=== PATIENT | male | born 1960 | race Caucasian/White ===

== ENCOUNTER 2025-10-10 06:10 | Day surgery (SDC) | payer BC, SELFPAY ==
[2025-10-10] VITALS (20 sets, daily range): BP systolic 86–151; BP diastolic 46–96; PULSE 44–73; RESP 12–16; TEMP 36–36.7; O2SAT 93–99; BMI 33.9
[2025-10-10] MEDS: OXYCODONE (CR) 10 MG TAB.ER.12H PO (06:35)
[2025-10-10] MEDS: ACETAMINOPHEN 500 MG TABLET 1000 MG PO (06:35)
[2025-10-10] MEDS: LACTATED RINGERS 1000 ML 1,000 ML 100 ML IV ×3 (06:55→09:34)
[2025-10-10] MEDS: SODIUM CHLORIDE 0.9 % (FLUSH) 10 ML SYRINGE IVF (06:55)
--- NOTE | 2025-10-10 07:18 | W.PM.H&PU ---
History & Physical Update History & Physical Update H&P Reviewed and patient assessed: No changes noted
--- NOTE | 2025-10-10 07:23 | SUR.PREOP ---
TIME?OUT:?0724 PT/RN/MDA?VERIFICATION?OF?SURGICAL?SITE-RIGHT KNEE,?PROCEDURE,?NERVE BLOCK, AND?CONSENT OBTAINED?PRIOR?TO?INVASIVE?PROCEDURE.
[2025-10-10] MEDS: MIDAZOLAM HCL 1 MG/ML inj IVP (07:25)
[2025-10-10] MEDS: TRANEXAMIC ACID 100 MG/ML INJ 1000 MG IV (07:45)
--- NOTE | 2025-10-10 07:54 | W.PM.NB ---
Nerve Block Nerve Block Time Seen by Provider: 07:25 Date Seen: 10/10/25 Type of block requested by surgeon for post-operative analgesia: adductor canal Side: right Time out performed: Yes Verification of patient name: Yes Verification of date of : Yes Site marking: site marked Name of person performing procedure: Beau Continuous monitoring Was continuous monitoring of O2 sat, B/P, court monitor, recorded every 15 minutes?: Yes Procedure Checklist: sterile prep, needles and gloves Ultrasound guided. Images saved: Yes Medications given in 5ml increments after negative aspiration: Marcaine %: 0.25 mL: 15 Needle gauge: 20 Precedex (mcg): 25 Patient tolerated procedure well: Yes Block Charges Block Charge (with Pro Fee): Femoral Nerve Use of Ultrasound Machine for Block: Yes- US Guidance/pain block
--- NOTE | 2025-10-10 07:55 | W.PM.NB ---
Nerve Block Nerve Block Time Seen by Provider: 07:25 Date Seen: 10/10/25 Type of block requested by surgeon for post-operative analgesia: geniculars Side: right Time out performed: Yes Verification of patient name: Yes Verification of date of : Yes Site marking: site marked Name of person performing procedure: Beau Continuous monitoring Was continuous monitoring of O2 sat, B/P, lunchroom monitor, recorded every 15 minutes?: Yes Procedure Checklist: sterile prep, needles and gloves Ultrasound guided. Images saved: Yes Medications given in 5ml increments after negative aspiration: Marcaine %: 0.25 mL: 9 Needle gauge: 25 Patient tolerated procedure well: Yes Block Charges Block Charge (with Pro Fee): Genicular Nerve Block
--- NOTE | 2025-10-10 09:01 | P.ORPRC_ITS ---
Procedure Note Date of procedure: 10/10/25 Procedure: PREOPERATIVE DIAGNOSIS: 1. Right knee osteoarthritis, primary, severe POSTOPERATIVE DIAGNOSIS: 1. Right knee osteoarthritis, primary, severe PROCEDURE: 1. Right total knee arthroplasty, Press-Fit, Rotating Platform - No tourniquet SURGEON: Benoit Martínez MD. [employer] ASSEMBLER: CATRACHITA Berry - Of note, a skilled physical laboratory assistant was critical for this case to aid in patient positioning, tissue retraction, limb manipulati on/positioning, and closure. ANESTHESIA: Spinal anesthetic EBL: 100ml IMPLANTS: DePuy J&J uncemented TKA - Attune PS pressfit femur size 7 Size 6 pressfit tibia Rotating Platform 5mm RP poly spacer 38 mm Affixium patella TOURNIQUET: None COMPLICATIONS: None evident INDICATIONS: The patient is a pleasant 65-year-old male who has experienced severe right knee pain and difficulty bearing weight. Workup included x-rays which revealed severe osteoarthrosis in the knee. Given the deformity, the dysfunction, and the pain, as well as the failure of nonoperative management, recommendation was made for surgery. FINDINGS: Full-thickness chondral loss within the medial compartment with erosion of bone. To lesser degree patellofemoral and lateral compartment chondromalacia noted. Degenerative meniscus pathology medial greater than lateral. Small to moderate effusion upon entering the joint. DESCRIPTION OF PROCEDURE: Following a thorough discussion of risks, benefits, and alternatives consent was obtained and the right knee was marked. The patient was brought to the operating room and placed supine on the operating table. Induction of anesthesia was undertaken. 2 g IV Ancef and 1 g tranexamic acid was administered within 1 hr of incision preoperatively. Proper time-out was performed identifying proper patient, site, procedure. The operative extremity was prepped and draped in the appropriate sterile fashion using ChloraPrep after the patient was positioned supine with all bony prominences well padded. A longitudinal, anterior, midline skin incision was made starting approximately 3cm proximal to the superior pole of the patella and advanced distal to the tibial tubercle. A sub vastus approach was utilized. After mobilizing the patella, the retropatellar fatpad was resected and the synovium in the suprapatellar pouch excised to visualize the anterior femoral cortex. Patellar prep showed initial measurement/thickness of 26 mm. It was resected back to approximately 15 mm. The patella prep was completed with drilling and a trial placed followed by a protector plate until final component implantation. Femoral preparation was performed via an intramedullary guide. Step drill allowed access into the femoral canal. The distal cutting guide was placed with 5? of valgus and 11 mm cut on the distal femur. Femur was sized using a anterior referencing guide in 3? of external rotation. This was found to have a best fit with the sizing noted above. The 4 in 1 cutting block was then placed, and the distal femur shaped accordingly. The box cut was then completed. We turned our attention to the proximal tibia. Extramedullary guide was utilized for cutting with the goal of being 90 degree cut from the mechanical axis of the tibia in the varus/valgus plane utilizing tibial crest as the primary alignment. Initially a 3 mm resection was performed from the medial tibial plateau. Ultimately, balancing was achieved in both flexion and extension in both varus and valgus. The knee was able to achieve full extension comfortably. It was sized to be a best fit with as noted above. At this stage, trial implants were removed, the tibia and femoral and patellar components were opened and inserted. The real poly spacer was opened and inserted. A 3 min Betadine soak performed. Finally, a final irrigation round with normal saline was performed. Closure performed with 0 PDS and #0 Stratafix for the quad tendon/retinaculum. 2-0 Vicryl/Stratafix for the subcutaneous and 4-0 Monocryl for subcuticular closure. Dressings were applied and the patient was awoken from anesthesia and transferred the PACU in stable condition. A skilled physical laboratory assistant was critical for this case to aid in patient positioning, tissue retraction, bone exposure, limb manipulation/positioning, patient safety, and closure. PLAN: 1. Weight bear as tolerated operative extremity. 2. 23 hr perioperative antibiotics. 3. Ice. 4. PT/OT consults for ambulation assistance/mobility education. 5. Social work consult for discharge planning. 6. DVT prophylaxis with at SCDs, and aspirin twice daily.
--- NOTE | 2025-10-10 09:19 | CRLHL7_ITS ---
For Patients: As a result of the Cures Act, medical imaging exams and procedure reports are released immediately into your electronic medical record. You may view this report before your referring provider. If you have questions, please contact your health care provider. INDICATION: Total knee arthroplasty. TECHNIQUE: Two view RIGHT knee portable. IMPRESSION : Prosthetic components intact. Patellar resurfacing. Anatomic alignment. No acute osseous lesions. Dictated by Lion Javier MD @ 10/10/2025 9:47:36 AM (Electronically Signed)
--- NOTE | 2025-10-10 09:24 | P.ANES_ITS ---
Anesthesia Charges Start Date/Time Anesthesia Start Date: 10/10/25 Anesthesia Start Time: 07:32 Stop Date/Time Anesthesia Stop Date: 10/10/25 Anesthesia Stop Time: 09:20 Coding CPT Codes CPT Codes: ANESTH KNEE ARTHROPLASTY - 65990 ([id number]) P2 - PATIENT W/MILD SYST DISEASE, QK - ULTIMATE HOOPS SCOREBOARD OPERATOR 2-4 CNCRNT ANES PROC, QX - BASE REMOVER SVC W/ MD MED DIRECTION
--- NOTE | 2025-10-10 09:24 | W.ANESCHARGE ---
Anesthesia Charges Start Date/Time Anesthesia Start Date: 10/10/25 Anesthesia Start Time: 07:32 Stop Date/Time Anesthesia Stop Date: 10/10/25 Anesthesia Stop Time: 09:20 Coding CPT Codes CPT Codes: ANESTH KNEE ARTHROPLASTY - 35750 ([id number]) P2 - PATIENT W/MILD SYST DISEASE, QK - ROAD DRIVER 2-4 CNCRNT ANES PROC, QX - MANAGER FIELD SVC W/ MD MED DIRECTION
--- NOTE | 2025-10-10 09:26 | P.ANES_ITS ---
Anesthesia Charges Start Date/Time Anesthesia Start Date: 10/10/25 Anesthesia Start Time: 07:32 Stop Date/Time Anesthesia Stop Date: 10/10/25 Anesthesia Stop Time: 09:20 Coding CPT Codes CPT Codes: ANESTH KNEE ARTHROPLASTY - 03236 ([id number]) P2 - PATIENT W/MILD SYST DISEASE, QK - SMALL BUSINESS SALES REPRESENTATIVE 2-4 CNCRNT ANES PROC, QX - PIGMENT AND LACQUER MIXER SVC W/ MD MED DIRECTION
--- NOTE | 2025-10-10 09:26 | W.ANESCHARGE ---
Anesthesia Charges Start Date/Time Anesthesia Start Date: 10/10/25 Anesthesia Start Time: 07:32 Stop Date/Time Anesthesia Stop Date: 10/10/25 Anesthesia Stop Time: 09:20 Coding CPT Codes CPT Codes: ANESTH KNEE ARTHROPLASTY - 38210 ([id number]) P2 - PATIENT W/MILD SYST DISEASE, QK - MODEL AND PATTERN SUPERVISOR 2-4 CNCRNT ANES PROC, QX - EDUCATIONAL DIRECTOR SVC W/ MD MED DIRECTION
--- NOTE | 2025-10-10 13:45 | SUR.PHASEII ---
Pt able to urinate in toilet before going to PT. Patient able to stand but has weakness in quad muslce. Unable to take a step without leg giving out. Roney from PT will give pt brace to wear. Pt able to pivot to w/c from chair and then to toilet from w/c with minimal assist. Continue to monitor.
--- NOTE | 2025-10-10 15:18 | SUR.PHASEII ---
Patient verbalized understanding of discharge instructions that were reviewed by Ulices Downing RN. Patient verbalized understanding of PT orders to wear an immobilizer on operative leg until all muscle strength returns. Patient verbalized readiness to be discharged.
== END 2025-10-10 15:15 | disposition home or self-care (01) ==
LOC: OR 06:10
PROVIDERS: PCP Physician Assistant; Visit Provider Orthopaedic Surgery Sports Medicine
PROC: (CPT 27447; principal; 2025-10-10 07:30)
DX: M17.11 Unilateral primary osteoarthritis, right knee (principal); G89.18 Other acute postprocedural pain
CPT/HCPCS: 27447; 01402; 64447; 64454; 73560; 76942; 97110; 97161; 97530; A9270; C1776; J0665; J0690; J1100; J2250; J2405; J2704; J3010; J7120

== ENCOUNTER 2025-10-25 10:11 | Outpatient (CLI) | payer BC, SELFPAY ==
--- NOTE | 2025-10-25 10:15 | CRLHL7_ITS ---
For Patients: As a result of the Century Cures Act, medical imaging exams and procedure reports are released immediately into your electronic medical record. You may view this report before your referring provider. If you have questions, please contact your health care provider. Indication: Right calf pain and swelling status post right TKA. Technique: Grayscale, grayscale compression, color Doppler, spectral Doppler and augmentation technique was utilized for evaluating the right lower extremity venous system. The left common femoral vein was also studied. Comparison: None Findings: The left common femoral vein is patent. The following structures were studied on the right: Common femoral vein, greater saphenous vein, deep femoral vein, femoral vein, popliteal vein, peroneal vein and posterior tibial veins. There is deep venous thrombosis involving the right popliteal vein as well as 1 of the paired posterior tibial veins and the peroneal veins. The remainder of the right lower extremity venous system is normal Impression: Right lower extremity deep venous thrombosis involving the popliteal vein, 1 of the paired posterior tibial veins and the peroneal veins. Dictated by Arnulfo Georges MD @ 10/25/2025 11:39:34 AM (Electronically Signed)
== END 2025-10-25 10:12 | disposition home or self-care (01) ==
PROVIDERS: PCP Physician Assistant; Visit Provider Physician Assistant Surgical
DX: I82.491 Acute embolism and thrombosis of other specified deep vein of right lower extremity (principal); I82.431 Acute embolism and thrombosis of right popliteal vein; Z96.651 Presence of right artificial knee joint; M79.661 Pain in right lower leg
CPT/HCPCS: 93971

== ENCOUNTER 2025-10-25 11:23 | Emergency (ER) | payer BC, SELFPAY ==
--- OUTSIDE RECORDS SUMMARY | 2025-09-20 10:00 | XMS_ITS | Encounter Summary ---
Author Organization [facility] Address [address] [place] [address] Care Team Providers Care Order Entry Administrator Name Role Phone Francine Sharma P.A.-C., P.A. Primary Care Provid er Reason for Visit * ReasonCommentsPre-op Exam * Appointment Request (Routine) - ClosedSpecialtyDiagnoses / ProceduresReferred By ContactReferred To ContactFanew [facility] Medicine Referral IDStatusReasonStart DateExpiration DateVisits RequestedVisits [id number]/29/20251/ Encounter Details DateTypeDepartmentCare Team (Latest Contact Info)Qahrojnnfma57/18/2025 10:00 AM CSTOffice Visit Department of Family Medicine, [facility], in [place], [place] [address] [place] [address] Francine Sharma P.A.-C., P.A. [address] [place] [address] Preoperative Exam (Primary Dx); Primary Malignant Neoplasm Of Prostate (HCC); PreDiabetes; Encounter For Screening For Cardiovascular Disorders Social History Tobacco UseTypesPacks/DayYears UsedDateSmoking Tobacco: NeverSmokeless Tobacco: NeverAlcohol UseStandard Drinks/WeekCommentsNot Currently0 (1 standard drink = 0.6 oz pure alcohol)Humiliation, Afraid, Rape, and Kick questionnaireAnswerDate RecordedWithin the last year, have you been afraid of your partner or ex-partner?No03/20/2023Within the last year, have you been humiliated or emotionally abused in other ways by your partner or ex-partner?No03/20/2023 Within the last year, have you been kicked, hit, slapped, or otherwise physically hurt by your partner or ex-partner?No03/20/2023Within the last year, have you been raped or forced to have any kind of sexual activity by your part ner or ex-partner?No03/20/2023Hunger Vital SignAnswerDate RecordedWithin the past 12 months, you worried that your food would run out before you got the money to buymore.Never true09/13/2025Within the past 12 months, the food you bought just didn't last and you didn't have money to get more.Never true 09/13/2025PRAPARE - TransportationAnswerDate RecordedIn the past 12 months, has lack of transportation kept you from medical appointments or from getting medications?No09/13/2025In the past 12 months, has lack of transportation kept you from meetings, work, or from getting things needed for daily living?No 09/13/2025HC UtilitiesAnswerDate RecordedIn the past 12 months has the [employer], gas, oil, or water [employer] threatened to shut off services in your home?No09/13/2025Housing StabilityAnswerDate RecordedWhat is your living situation today?I have a steady place to live09/13/2025EducationAnswerDate RecordedWhat is the highest level of school you have completed or the highest degree you have received?Associate degree: occupational, technical, or vocational jmogpfj0503/20/2023Sex and Gender InformationValueDate RecordedSex Assigned at SjfafAoav74/31/2020 2:29 PM CDTLegal EshJvyg1312/06/2016 2:45 AM [employer] Gender JxdrjwjpLpuk07/13/2020 11:33 AM CDTSexual QxiukvuarxgUfzmdclu64/13/2020 11:33 AM CDTdocumented as of this encounter Last Filed Vital Signs Vital SignReadingTime TakenCommentsBlood Nvzfhrgu391/8109/20/2025 9:42 AM [employer] MzbagkyKbrfq0579/18/2025 9:42 AM SPFUeuhjptvuqy17.2 ??C (97.1 ??F)09/20/2025 9:42 AM CSTRespiratory Rate--Oxygen Saturation--Inhaled Oxygen Concentration-- Vghzgk049 kg (228 lb 2.8 oz)09/20/2025 9:42 AM WNFJwbxve887 cm (5' 8.9) 09/20/2025 9:42 AM CSTBody Mass Index33.8111/20/2024 9:42 AM CSTdocumented in this encounter Functional Status * PHQ BACKGROUND SCOREAnswerDate of QuspeufhiyAhsoqn350/11/2025 11:28 AM [employer] Patient, Online Services * STOP-BANG QuestionnaireQuestionAnswerDate of AssessmentAuthorDo you snore loudly (loud enough to be heard through closed doors or your bed-partner elbows you for snoring at night)? 9:42 AM Hanane Bailey you often feel tired, fatigued, or sleepy during the daytime (such as falling asleep during driving or talking to someone)? 9:42 AM Hanane Bailey anyone observed you stop breathing or choking/gasping during your sleep? 9:42 AM Hanane Bailey you have or are being treated for high blood pressure? 9:42 AM Hanane Baileyody Mass Index more than 35 kg/m2? 9:42 AM Hanane Bailey older than 50?1 09/20/2025 9:42 AM Hanane Bailey your shirt collar 16 inches/40cm or larger? 9:42 AM Hanane BaileyGender = Male? 9:42 AM Hanane BaileyTOP-BANG Total Enruk42911/20/2024 9:42 AM Hanane Bailey * BMI: Desirable <25, High Risk >30AnswerDate of XycspjkomwYptceoTywy76/18/2025 9:42 AM Hanane Bailey * Little interest or pleasure in doing thingsAnswerDate of AssessmentAuthor0 09/13/2025 11:28 AM CSTPatient, Online Services * Feeling down, depressed, or hopelessAnswerDate of PkbvqncjdkVqmtsb145/11/2025 11:28 AM CSTPatient, Online Services * PHQ-2 ScoreAnswerDate of FjdubkyynwDiqxod354/11/2025 11:28 AM CSTPatient, Online Services * AnthropometricsQuestionAnswerDate of AssessmentAuthorBMI (Calculated)33.8 09/20/2025 9:42 AM Hanane Bailey documented as of this encounter Progress Notes * Francine Sharma P.A.-C., P.A. - 09/20/2025 10:00 AM CST SUBJECTIVE CHIEF COMPLAINT/REASON FOR VISIT Pre-op Exam ( Surgery on Oct 13 for knee). HISTORY OF PRESENT ILLNESS Harris Marshall is a 65 y.o. male who presents to the clinic today for a preoperative exam prior to right total knee arthroplasty on 10/10/[address] Eaton at [facility]. There have been no prior complications or problems with anesthesia. There is no family medical history of problemswith anesthesia or malignant hyperthermia. The patient has no known bleeding or clotting disorders.There are no problems with neck range of motion. The patient has not been diagnosed with sleep apnea. The patient does not have diabetes. There are no sensitivities to tape or latex. No problems swallowing or current loose teeth. The patient does not wear dentures. The patient does not use blood thinners. The patient does not routinely use NSAIDs. The patient is a nonsmoker. The patient is not taking a beta bindu. There is no need for prophylactic antibiotics. The patient has no cardiopulmonary problems walking 4 blocks or climbing 2 flights of stairs. Patient denies any recent illness including cough, cold, or shortness of breath. REVIEW OF SYSTEMS Constitutional: - Negative for fatigue, fever and night sweats. Skin: - Negative for skin rash and change in mole or skin spot. Eyes: - Negative for double vision, visual problems and sudden loss of vision. Respiratory: - Negative for dry cough, shortness of breath and wheezing. Cardiovascular: - Negative for chest pain, pressure or tightness, swelling in the legs or feet and rapid or fluttering heart beat. Gastrointestinal: - Negative for abdominal (belly) pain or cramping, constipation, diarrhea, nausea and vomiting. Genitourinary: - Negative for difficulty urinating, pain with urination, blood in urine and frequent urination. Neurological: - Negative for loss of consciousness, light-headedness, headaches and blackouts. Psychiatric/Behavioral: - Negative for little interest or pleasure in doing things over past two weeks, feeling down, depressed, or hopeless over past two weeks, not being able to stop or control worrying over past two weeks and feeling nervous, anxious, or on edge in past two weeks. The following portions of the patient's history were reviewed and updated as appropriate: allergies, current medications, family history, medical history, social history, surgical history and problemlist. OBJECTIVE VITAL SIGNS BP 122/81 (BP Location: Right arm, Patient Position: Sitting, Cuff Size: Large) Comment: Average Pulse 60 Temp 36.2 ??C (Temporal) Ht 175 cm Wt 104 kg BMI 33.80 kg/m?? PHYSICAL EXAMINATION General: Patient is alert and oriented, in no acute distress. Capable of full communication withoutdifficulty. Patient is polite and cooperative. Appropriately dressed and normal hygiene. HEENT: Normocephalic, atraumatic. Pupils are equal, round and reactive to light. Auditory canals patent. Tympanic membranes are pearly bradford with adequate visualization of bony prominences. Nares are patent. Oropharynx without lesion of mucosa. Pharynx rises symmetrically without exudate. Dentition grossly intact. Mallampati II. Neck: No lymphadenopathy. No thyroid enlargement or nodules. No carotid bruit. Neck is supple with normal range of motion. Heart: Regular rate and rhythm. No murmurs, gallops or rubs noted. No S3, no S4. Lungs: Regular rate and rhythm of respirations. Clear to auscultation bilaterally. No wheezing or crackles. No accessory muscles of respiration noted. Abdomen: Nontender to palpation. No hepatosplenomegaly. No mass. Normal bowel sounds in all 4 quadrants. Musculoskeletal: Normal range of motion in all extremities. Extremities: No neurovascular compromise. No cyanosis or clubbing. No edema. Skin: No rashes or wounds. No evidence of excessive bruising. Neurologic: Cranial nerves 2-12 are grossly intact. Deep tendon reflexes are 2+ bilaterally in patellar tendons. Mental: Affect is normal. Thought process is congruent. Speech is fluent. ASSESSMENT / PLAN 1. Preoperative Exam (Primary) PLAN: Patient is felt to be medically stable and medically optimized for the above procedure. No contraindication to anesthesia. Known cardiopulmonary risk factors include obesity. Functional capacity is >4 METS. We reviewed medications to avoid taking prior to the procedure. The patient knows to be fasting after midnight the day of surgery. Further preoperative and postoperative recommendations will be given prior to surgery by surgeon. Patient will followup as needed. 2. Primary Malignant Neoplasm Of Prostate (HCC) Annual PSA monitoring due to history of prostate cancer, due in February,, ordered today. - PSA (Prostate-Specific Antigen), Diagnostic; Future 3. PreDiabetes History of prediabetes with last A1c found to be elevated at 6.2% in February,, due to repeat/monitor annually, ordered today. - Hemoglobin A1c; Future 4. Encounter For Screening For Cardiovascular Disorders Patient due for routine lipid screening, which is ordered today to be completed prior to time of annual physical next year. - Lipid Panel; Future Francine Sharma P.A.-C., P.A. [facility] documented in this encounter Plan of Treatment NameTypePriorityAssociated DiagnosesOrder SchedulePSA (Prostate-Specific Antigen), DiagnosticLabRoutine Primary Malignant Neoplasm Of Prostate (HCC) Expected: 02/18/2026, Expires: 12/21/2026Hemoglobin Z2dWnmFyylfak PreDiabetes Expected: 02/18/2026 (Approximate), Expires: 12/21/2026Lipid PanelLabRoutine Encounter For Screening For Cardiovascular Disorders Expected: 02/18/2026 (Approximate), Expires: 12/21/2026documented as of this encounter Visit Diagnoses Diagnosis Preoperative Exam- Primary Primary Malignant Neoplasm Of Prostate (HCC) PreDiabetes Encounter For Screening For Cardiovascular Disorders documented in this encounter Care Teams Team MemberRelationshipSpecialtyStart DateEnd Date Francine Sharma P.A.-C., P.A. [address] [place] [address] PCP - Xuvduhh28/1/21 Dr Umer Pillai at [facility]. 09/28/24documented as of this encounter
--- OUTSIDE RECORDS SUMMARY | 2025-10-25 11:33 | XMS_ITS | Clinical Summary ---
Author Organization [facility] Address [address] [place] [address] Care Team Providers Care Utility Tech Name Role Phone Francine Sharma P.A.-C., P.A. Primary Care Provid er Source Comments Patient records contain information from all sites at [facility]. For routine questions regarding patient records, call [phone] during business hours, M-F 8:00 AM - 5:00 PM Central Time. Record requests for emergency care only can be directed to [phone] at any time.[facility] Allergies Active AllergyReactionsCriticalityNoted DateCommentsVenom-Honey BeeEdema (Reselect Reaction)Low07/18/2017 Medications * This document contains information received from the source organization and may not represent a complete record from that organization. MedicationSigDispense QuantityRefillsLast FilledStart DateEnd DateStatus multivitamin capsule Take 1 capsule by mouth daily.Active acetaminophen (TylenoL) 325 mg tablet Take 650 mg by mouth every 4 (four) hours as needed for pain.Active ibuprofen 200 mg tablet Take 400 mg by mouth every 6 (six) hours as needed for pain.Active Active Problems ProblemNoted DateDiagnosed DatePrimary Malignant Neoplasm Of Gzrvigst62/17/2020 Cancer Staging: Clinical stage from 07/20/2020:Stage I(cT1a, cN0, cM0, PSA: 4.2, Grade Group: 1) - Signed by Jaquan Foster M.D. on 07/20/2020 Pathologic stage from 10/13/2020:Stage IIB(ypT2, pN0, cM0, PSA: 4.2, Grade Group: 2) - Signed by Holley Vargas APRN, C.N.P. on 02/26/2022 Abnormality Hair11/27/2010Conjunctivitis Ygcnnsw9211/27/2010 Resolved Problems ProblemNoted DateDiagnosed DateResolved DateDisplaced Fracture Of Head Of Right Radius Initial Encounter Closed Omrijjeq99 Encounters * This document contains information received from the source organization and may not represent a complete record from that organization. DateTypeDepartmentCare UcivJakyqkztmxp38/18/2025 10:00 AM CSTOffice Visit Department of Family Medicine, [facility], in [place], [place] [address] [address] Francine Sharma P.A.-C., P.A. Preoperative Exam (Primary Dx); Primary Malignant Neoplasm Of Prostate (HCC); PreDiabetes; Encounter For Screening For Cardiovascular Disordersfrom Last 3 Months Immunizations ImmunizationAdministration DatesNext QndF1L6 All Forms08/29/2009Influenza, Injectable, Ykdavyrnspwm93/26/2015Influenza, Seasonal, Mguafcuavw16/12/4688SYP30 09/20/2025RZV (SHINGRIX)01/27/2021,08/03/20203808SRWG-WZE-0 (COVID-19) - MODERNA (12 YEARS AND OLDER) Fall Wextjqxg81/18/2025Td (Adult), lycwomxo14/25/2003Td Preservative Free (TENIVAC, DECAVAC)09/19/2005,09/27/2003Td, (Adult) Unspecified 09/11/2012Tdap1,09/11/2012influenza trivalent vaccine (6 months and older)(PF)09/20/2025influenza vaccine quad (FLUZONE/FLUARIX) (6 months and older)(PF)08/14/2022,08/20/2021,08/03/2020,07/13/2019,08/08/2017 Family History Medical HistoryRelationNameCommentsDiabetesBrother 1DiabetesBrother 2Kelly HansenAortic valveFatherRaymond HansenCardiac pacemakerFatherRaymond Marshall DiabetesFatherRaymond HansenProstate cancerFatherRaymond HansenSkin cancerFather Karlos HansenProstate cancerMaternal GrandfatherEsophageal strictureMaternal GrandmotherBreast cancer (in one breast)MotherSjuwan HansenLungPaternal GrandfatherNo Known ProblemsPaternal GrandmotherNo Known ProblemsSister 1 DiabetesSister 2DiabetesSister 3BeckyRelationNameStatusCommentsBrother 1Alive Brother 2Kgia HansenAliveFatherRaymond HansenAliveMaternal GrandfatherDeceased (Age 85)Maternal GrandmotherDeceased (Age 88)MotherShirfrieda HansenDeceased (Age 56)Paternal GrandfatherDeceasedPaternal GrandmotherDeceased (Age 88)Sister 1 AliveSister 2AliveSister 3BeckyAlive Social History Tobacco UseTypesPacks/DayYears UsedDateSmoking Tobacco: NeverSmokeless Tobacco: Never Tobacco Cessation:Counseling Given: Not Answered Alcohol UseStandard Drinks/WeekCommentsNot Currently0 (1 standard drink = [...] RecordedIn the past 12 months has the electric, gas, oil, or water company threatened to shut off services in your home?No09/13/2025Housing StabilityAnswerDate RecordedWhat is your living situation today?I have a steady place to live09/13/2025EducationAnswerDate RecordedWhat is the highest level of school you have completed or the highest degree you have received?Associate degree: occupational, technical, or vocational lxyrern0303/20/2023Sex and Gender InformationValueDate RecordedSex Assigned at AogjmSahg70/31/2020 2:29 PM CDTLegal XrhUidq1812/06/2016 2:45 AM [employer]SEM[employer] Gender PkvyzkkvErnx56/13/2020 11:33 AM CDTSexual BpiqvweprcpNgqwwdfa35/13/2020 11:33 AM CDT Last Filed Vital Signs Vital SignReadingTime TakenCommentsBlood Bkuihpza038/8109/20/2025 9:42 AM [employer] RmiqmzoBqvgf8698/18/2025 9:42 AM DLHPfzbjrcvtxm01.2 ??C (97.1 ??F)09/20/2025 9:42 AM CSTRespiratory Zggb713112/13/2019 5:00 PM CSTOxygen Eaumqovksa88% 02/26/2022 1:56 PM CDTRAInhaled Oxygen Concentration--Pusuhu788 kg (228 lb 2.8 oz)09/20/2025 9:42 AM MUTGicjxe330 cm (5' 8.9)09/20/2025 9:42 AM CSTBody Mass Index33.8111/20/2024 9:42 AM [employer]SEM[employer] Plan of Treatment Health MaintenanceDue DateLast DoneCommentsCT Nezojbzebdaa1961Cologuard 1961FIT1961Fasting Glucose for Diabetes Uzvjyjkjz14/01/2026 02/01/2025, 08/16/2024, 10/10/2020, Additional history existsLipid (Cholesterol) Nnwgyxmfo21, 04/15/2020 (Performed elsewhere), 09/11/2012 Junnrwtpuau58, 10/08/2012Colorectal Cancer Qabeomtuj32/15/2033 DTaP,Tdap,and Td Vaccines (4 - Td or Tdap), 09/11/2012, 09/11/2012, Additional history existsHepatitis C PtvxoktkbGjxhskgwa35/01/2020 (Performed elsewhere)Overridden with the intention of not completing the topic Zoster VkfheflhDxvnwfcvb15/27/2021, 08/03/2020Depression Screening (Annual PHQ-2)Aghcpoiyw81/11/2025OVID-19 QxkgadsHxvjhvzso15/18/2025, 09/06/2021, 11/29/2020, Additional history existsInfluenza FcutkarQwkzjcxll47/18/2025, 08/14/2022, 08/20/2021, Additional history existsPneumococcal vaccine (50+ years)Rtnrbxnot11/18/2025IPV VaccinesAged OutNo longer eligible based on patient's age to complete this topic Medical Devices ImplantedTypeAreaManufacturerDevice IdentifierShelf Expiration DateModel / Serial / LotHardware E.G. Pins/Screws/RodsHardware e.g. pins/screws/rodsRight: ElbowClp ol Pl Lg - [id number] Implanted:Qty: 1 on 10/12/2020 [facility] pins/screws/rodsTeleflex [id number] / / [id number] Hmol Pl Lg - [id number] Implanted:Qty: 1 on 10/12/2020 by [facility] e.g. pins/screws/rodsN/A: [employer] [id number] / / [id number] ol Plmr Md - [id number] Implanted:Qty: 1 on 10/12/2020 by [facility] e.g. pins/screws/rodsN/A: [employer] [id number] / / [id number] Hmfranco Pl Lg - [id number] Implanted:Qty: 1 on 10/12/2020 by [facility] e.g. pins/screws/rodsN/A: [employer] [id number] / / [id number] Procedures Procedure NamePriorityDate/TimeAssociated DiagnosisCommentsHEMOGLOBIN A1C, B Oichrlg6702/01/2025 9:38 AM CDT Screening Examination Diabetes Mellitus LIPID PANEL, ORvkcedf13/01/2025 9:38 AM CDT Screening Lipid from Last 3 Months or Most Recently Relevant to Health Maintenance Results * Lipid Panel (02/01/2025 9:38 AM CDT)ComponentValueRef RangeTest MethodAnalysis TimePerformed AtPathologist BaqaxjqjrCdzysupuwwohs28hi/dL02/01/2025 10:37 AM CDTOWATComment: ----REFERENCE VALUE---- Normal: <150 mg/dL Borderline High: 150-199 mg/dL High: 200-499 mg/dL Very High: > or =500 mg/dL Cholesterol, Jkunl957gj/dL02/01/2025 10:37 AM CDTOWATComment: ----REFERENCE VALUE---- Desirable: < 200 mg/dL Borderline High: 200 - 239 mg/dL High: > or = 240 mg/dL Cholesterol, LDL, Atjmfaltlo342mj/dL02/01/2025 10:37 AM CDTOWATComment: ----REFERENCE VALUE---- Desirable: <100 mg/dL Above Desirable: 100-129 mg/dL Borderline High: 130-159 mg/dL High: 160-189 mg/dL Very High: >=190 mg/dL ----ADDITIONAL INFORMATION---- LDL cholesterol calculated using the Aiken/NIH equation. Cholesterol, HDL45>=40 mg/dL02/01/2025 10:37 AM CDTOWATCholesterol, Non-HDL, Sjfoywifhg173lt/dL02/01/2025 10:37 AM CDTOWATComment: ----REFERENCE VALUE---- Desirable: <130 mg/dL Above Desirable: 130-159 mg/dL Borderline High: 160-189 mg/dL High: 190-219 mg/dL Very High: > or =220 mg/dL Fasting (8 HR or more)Yes02/01/2025 9:38 AM CDTOWATSpecimen (Source)Anatomical Location / LateralityCollection Method / VolumeCollection TimeReceived TimeBlood (Blood, Venous)02/01/2025 9:38 AM CDT02/01/2025 9:45 AM CDT Narrative Authorizing ProviderResult TypeResult StatusFrancine Sharma P.A.-C., P.A.LAB BLOOD ADD-ONFinal ResultPerforming OrganizationAddressCity/State/ZIP CodePhone Number [facility] [address] [place] [address], [facility] OWAT [facility] [place] [address], [place] [address] * (ABNORMAL) Hemoglobin A1c (02/01/2025 9:38 AM CDT)ComponentValueRef RangeTest MethodAnalysis TimePerformed AtPathologist SignatureHemoglobin A1c, B6.2(H)4.2 - 5.6 %02/01/2025 10:42 AM CDTOWATComment: Hemoglobin A1c values of 5.7-6.4 percent indicate an increased risk for developing diabetes mellitus. In diabetic patients, HbA1c goals should be discussed with healthcare provider. Specimen (Source)Anatomical Location / LateralityCollection Method / Volume Collection TimeReceived TimeBlood (Blood, Venous)02/01/2025 9:38 AM CDT 02/01/2025 9:45 AM CDT Narrative Authorizing ProviderResult TypeResult StatusAnnalisa Keys APRN, C.N.P., D.N.P.LAB BLOOD ADD-ONFinal ResultPerforming OrganizationAddressCity/State/ZIP CodePhone Number [facility] [address] [place] [address], [place] OW[place] [facility] in [place] [address] [place] [address] from Last 3 Months or Most Recently Relevant to Health Maintenance Insurance Care Teams Team MemberRelationshipSpecialtyStart DateEnd Date Francine Sharma P.A.-C., P.A. [address] [place] [id number] PCP - Nivysni32/1/21 Dr Umer Pillai at [facility]. 09/28/24
--- OUTSIDE RECORDS SUMMARY | 2025-10-25 11:34 | XMS_ITS | Clinical Summary ---
Author Organization [facility] Address [address] [place] [address] Care Team Providers Care Barrer And Tacker Name Role Phone Francine Sharma Primary Care Provider [phone] Allergies Active AllergyReactionsCriticalityNoted DateCommentsVenom-Honey BeeEdemaLow 07/18/2017 Medications MedicationSigDispense QuantityRefillsLast FilledStart DateEnd DateStatus multivitamin capsule Take 1 capsule by mouth.Active Active Problems ProblemNoted DateDiagnosed Dates/p Right elbow radial head fracture ORIF, DOS: 07/22/[address] Shadi Price10/23/2017Closed displaced fracture of head of right gcsrxp9307/18/2017 Encounters DateTypeDepartmentCare OcwuMwofngmxuhw37/22/2025 9:17 AM PHARMACY CONSULTANT - 10/24/2025 11:59 PM CSTHospital Encounter [address] [address] Benoit Martínez MD Nightingale, Alexandra, PT 10/24/20259498Hfnxvp49/19/2025 10:58 AM PHARMACY CONSULTANT - 10/21/2025 11:59 PM CSTHospital Encounter [address] [address] Benoit Martínez MD Nightingale, Alexandra, PT 10/21/20253607Ycpygt97/16/2025 10:14 AM PHARMACY CONSULTANT - 10/18/2025 11:59 PM CSTHospital Encounter [address] [address] Benoit Martínez MD Wegner, Angela V, INNERSOLE MAKER 10/18/20254855Xydujd84/12/2025 10:15 AM PHARMACY CONSULTANT - 10/14/2025 11:59 PM CSTHospital Encounter [address] [address] Benoit Martínez MD Nightingale, Alexandra, PT 10/14/20258084Dihdxp43/09/2025 9:59 AM PHARMACY CONSULTANT - 10/11/2025 11:59 PM CSTHospital Encounter [address] [address] Benoit Martínez MD Nightingale, Alexandra, PT Encounter for person encountering health gryrdupp43/09/5751Gaztym04/17/2025 Transcribe Orders [facility] - [address] [address] Benoit Martínez MD 09/01/2025Transcribe Orders [facility] - [address] [address] Flo Pro MD from Last 3 Months Immunizations ImmunizationAdministration DatesNext DueTd (Age >=7 Years)09/11/2012,09/27/2003 Family History Medical HistoryRelationNameCommentsGood HealthFatherRelationNameStatusComments FatherAliveMotherDeceased Social History Tobacco UseTypesPacks/DayYears UsedDateSmoking Tobacco: NeverSmokeless Tobacco: Never Tobacco Cessation:Counseling Given: Yes Alcohol UseStandard Drinks/WeekCommentsYes0 (1 standard drink = 0.6 oz pure alcohol)rareSex and Gender InformationValueDate RecordedSex Assigned at BirthNot on fileLegal ScgTeqp6811/16/2012 6:25 AM CSTGender IdentityNot on fileSexual OrientationNot on file Last Filed Vital Signs Vital SignReadingTime TakenCommentsBlood Mcvvfzls723/7906/ 12:00 PM CDT Kzyft0610/ 12:00 PM TACQgexgxgfdiw62.5 ??C (97.7 ??F)04/17/2023 11:15 AM CDTRespiratory Pxvz950204/17/2023 12:00 PM CDTOxygen Yucabjbynt33%04/17/2023 12:00 PM CDTInhaled Oxygen Concentration--Ktekwk391.8 kg (222 lb 3.2 oz)04/17/2023 10:12 AM AISOjvrkh947.5 cm (5' 8.7)04/04/2023 12:22 PM CDTBody Mass Index33.1 04/04/2023 12:22 PM CDT Plan of Treatment DateTypeDepartmentCare Team (Latest Contact Info)Sgnthumuwkm87/24/2025 10:15 AM CSTAppointment [facility] [address] [place] [address] Amber Neal V, INNERSOLE MAKER [address] [place] [address] 11/01/2025 10:15 AM CSTAppointment [facility] [address] [place] [address] Dorothea Linn, INNERSOLE MAKER [address] [place] [address] 11/08/2025 11:00 AM CSTAppointment [facility] [address] [place] [address] Amber Neal V, INNERSOLE MAKER [address] [place] [address] 11/11/2025 10:15 AM CSTAppointment [facility] [address] Bibiana Selby, PT [address] [place] [address] 11/16/2025 11:00 AM CSTAppointment [facility] [address] [place] [address] Amber Neal V, [address] [place] [address] 11/18/2025 10:15 AM CSTAppointment [facility] [address] [place] [address] Amber Neal V, INNERSOLE MAKER [address] [place] [address], [place] [address] 11/22/2025 11:00 AM CSTAppointment [facility] [address] [place] [address] Amber Neal V, [address] [place] [address] 11/25/2025 10:15 AM CSTAppointment [facility] [address] [place] [address] Bibiana Selby, PT [address] [place] [address] Health MaintenanceDue DateLast DoneCommentsDepression screening for age 12+ 1973HIV for age 15-Hepatitis C screening for age 18-79 1979Lipids for age 45-Pneumococcal series for age 50+ (1 of 1 - PCV)2011Zoster (shingles) series for age 50+ (1 of 2)2011MI (ht and wt on same day) for age 18+, 07/21/2017, 07/18/2017 Hepatitis B series for 19+ (1 of 3 - Risk 3-dose series)2021Tetanus stzwfsa13/09/316447/07/2012, 09/27/2003Influenza Vaccine (#1)2025 Colonoscopy through age 750RSV vaccine for adults or (1 - 1-dose 75+ series)6COVID-19 vaccine seriesCompleted 09/20/2025, 09/04/2023, 09/06/2021, Additional history exists Medical Devices ImplantedTypeAreaManufacturerDevice [facility] Expiration DateModel / Serial / [id number] - [id number] Implanted:Qty: 1 on 07/22/2017 by Shadi Price MD at [facility] Right: [facility] [id number] / / Description:2.0mm x 15 cannulated screw Low compression screw #[id number] Load # 2 2 07/21/[id number] - [id number] Implanted:Qty: 1 on 07/22/2017 by Shadi Price MD at [facility] Right: [facility] [id number] / / Description:2.4mm fixed angle locking screw Mod T7 drive #[id number] Load # 2 2 07/21/2017 [id number] - [id number] Implanted:Qty: 1 on 07/22/2017 by Shadi Price MD at [facility] Right: [facility] [id number] / / Description:Head fixed angle locking plates standard rim plate. #103-0302 Load # 2 2 07/21/2017 V776-6998 - [id number] Implanted:Qty: 2 on 07/22/2017 by Shadi Price MD at [facility] Right: [facility] [id number] / / Description:2.4mm x 22 cortex screw Mod T 7 drive Self tapping # [id number] Load # 2 2 07/21/2017 Q017-6141 - [id number] Implanted:Qty: 1 on 07/22/2017 by Shadi Price MD at [facility] Right: [facility] [id number] / / Description:2.7mmx 16mm Cortex screw Mod T7 Drive self tappingg # [id number] Load # 2 2 07/21/2017 Ancr Sut #2 Gii Super Ancr - [id number] Implanted:Qty: 1 on 07/22/2017 by Shadi Price MD at [facility] Right: [employer]J [employer] J Depuy Mitek05/02/2020212034# / / [id number] - [id number] Implanted:Qty: 1 on 07/22/2017 by Shadi Price MD at [facility] Right: [employer]171-2720 / / Description:2.7 mm cortex screw 20 mm [id number]jokfeMwyiwm IdentifierShelf Expiration Date Model / Serial / [id number] - [id number] Explanted:Qty: 1 [facility] [employer] 173-0177 / / Description:2.7 mm fixed angle locking screw Load [id number] Kirs .987r6ec Style1 - [id number] Explanted:Qty: 1 on [facility]/2017 [facility] Sendmeboxmm[employer]RM [employer] 186-02-14# / / Description:Load [id number] - [id number] Explanted:Qty: 1 on 07/22/2017 [facility] [employer] 460-2030 / / Description:2.7 mm cortex screw Load [id number] - [id number] Explanted:Qty: 2 [facility]22/2017 [facility] [id number] / / Description:k wire Single trocar pt.1.37l792pi Load # 2 2 07/21/[address]-St - [id number] Explanted:Qty: 1 [facility]22/2017 [facility] Ddgboqqjpjlr885-0866# / / Description:Load # 2 2 07/21/2017 Procedures Procedure NamePriorityDate/TimeAssociated QobhrigfjEehmdjfdZHHYCIFQHQM24/15/2023 10:33 AM CDT from Last 3 Months or Most Recently Relevant to Health Maintenance Results * COLONOSCOPY (04/17/2023 10:33 AM CDT)Specimen (Source)Anatomical Location / LateralityCollection Method / VolumeCollection TimeReceived Time04/17/2023 10:33 AM CDT Narrative Transcriptions Argenis Quick MD - 04/17/2023 11:14 AM CDT Patient Name: Angie Marshall Procedure Date: 04/17/2023 Gender: Male Date of : 1960 Admit Type: Ambulatory Procedure: Colonoscopy Proceduralist: Argenis Mayer MD Referring MD: Argenis Mayer MD Indications/Pre-Op Diagnosis: Screening for colorectal malignantneoplasm Medications: Monitored Anesthesia Care Procedure Description: The procedure, indications, potential complications, (bleeding, perforation, infection, adverse medication reaction, missed lesionsor polyps) and alternatives available were explained to the patient, who appeared to understand and indicated this. Opportunity for questionswas provided and informed consent obtained. The endoscope [id number] was passed through the anus andadvanced to the cecum, identified by appendiceal orifice and ileocecal valve.The colonoscopy was performed without difficulty. The patient toleratedthe procedure well. The quality of the bowel preparation was evaluatedusing the BBPS (Shushan Bowel Preparation Scale) with scores of: Right Colon= 3, Transverse Colon = 3 and Left Colon = 3 (entire mucosa seen wellwith no residual staining, small fragments of stool or opaque liquid). The total BBPS score equals 9. Complications: No immediate complications. Estimated Blood Loss & Specimen: Estimated blood loss: none. Specimen collected: None Findings: The perianal and digital rectal examinations were normal. A few diverticula were found in the sigmoid colon. Non-bleeding external hemorrhoids were found during retroflexion. The hemorrhoids were small. The exam was otherwise without abnormality on direct and retroflexion views. Impressions/Post-Op Diagnosis: - Diverticulosis in the sigmoid colon. - Non-bleeding external hemorrhoids. - The examination was otherwise normal on direct and retroflexionviews. - No specimens collected. Recommendation: - Repeat colonoscopy in 10 years for screening purposes. Moderate Sedation: see anesthesia report Argenis Mayer MD 04/17/2023 11:14:38 AM This report has been signed electronically. Note Initiated On: 04/17/2023 10:33 AM Authorizing ProviderResult TypeResult StatusStacy Lizzy Hsu MD PROCEDURE ORDFinal Result from Last 3 Months or Most Recently Relevant to Health Maintenance Insurance Advance Directives * Full Code (Latest Code Status on File) Date ActivatedDate InactivatedComments04/17/2023 6:13 AM04/17/2023 2:54 PMQuestion AnswerCommentsCode Status Discussion:* Not Discussed * Full Code Date ActivatedDate InactivatedComments07/22/2017 2:52 PM07/22/2017 4:05 PM * Full Code Date ActivatedDate InactivatedComments07/22/2017 9:56 AM07/22/2017 2:52 PM * Full Code Date ActivatedDate YtcxyoxltjoFaqcmhum56/6/2012 7:47 AM10/08/2012 8:03 AM Care Teams Team MemberRelationshipSpecialtyStart DateEnd Francine Sharma PA [address] [place] [address] PCP - GeneralPhysician Wuowlojyn46/8/25
[2025-10-25 11:41] VITALS: BP 149/82; PULSE 62; RESP 18; TEMP 36.6; O2SAT 97; BMI 33.2
--- NOTE | 2025-10-25 11:56 | ED_ITS ---
HPI - Extremity Injury (Lower) General Date Seen: 10/25/25 Chief Complaint: Extremity Pain/Injury, Lower Stated Complaint: Blood clot R leg Time Seen by Provider: 10/25/25 11:25 Source: patient Mode of arrival: ambulatory Limitations: no limitations History of Present Illness HPI Narrative: Patient is 65-year-old male who came into the emergency department for a blood clot in his right leg. Had a knee Replacement on 10/10/2025. He states he has been doing well went to his follow-up appointment and had some calf pain. He did not notice the calf pain until he evaluated by the doctor. Was sent to ultrasound for a DVT ultrasound which came back positive. Due to that was sent to the emergency department for further evaluation. Denies chest pain, shortness of breath, lightheadedness. No other concerns noted at this time. States pain is minimal. Related Data Home Medications ?Medication ?Instructions ?Recorded ?Confirmed acetaminophen 500 mg tablet 1,000 mg PO Q6H PRN 10/25/25 (Tylenol Extra Strength) ibuprofen 200 mg capsule 600 mg PO Q6H PRN 10/25/25 1 12/26/24 Previous Rx's ?Medication ?Instructions ?Recorded aspirin 81 mg tablet,delayed 81 mg PO BID #60 tabs 06/27 release apixaban 5 mg (74 tabs) tablets in 5 mg PO BID #74 ea 10/25/25 a dose pack (Eliquis DVT-PE Treat 30D Start) Allergies Allergy/AdvReac Type Severity Reaction Status Date / Time venom-honey bee AdvReac edema Verified 10/25/25 11:48 Review of Systems Status of ROS: Reports: 10 or more systems reviewed and unremarkable except as noted in History and below [facility] Medical History Pneumonia ?J18.9 - Pneumonia, unspecified organism (ICD-10) Low back pain ?M54.50 - Low back pain, unspecified (ICD-10) Gastritis ?K29.70 - Gastritis, unspecified, without bleeding (ICD-10) Closed displaced fracture of head of right radius ?S52.121A - Displaced fracture of head of right radius, initial encounter for closed fracture (ICD-10) Torticollis ?M43.6 - Torticollis (ICD-10) Prostate cancer ?C61 - Malignant neoplasm of prostate (ICD-10) Surgical History History of total right knee replacement (10/10/25) ?Z96.651 - Presence of right artificial knee joint (ICD-10) History of radical prostatectomy (10/12/20) ?Z90.79 - Acquired absence of other genital organ(s) (ICD-10) History of lymph node excision (10/12/20) ?Z98.890 - Other specified postprocedural states (ICD-10) History of excision of pilonidal cyst ?Z98.890 - Other specified postprocedural states (ICD-10) History of open reduction and internal fixation (ORIF) procedure (07/22/17) ?Z98.890 - Other specified postprocedural states (ICD-10) Family History Brother Diabetes Father Diabetes Heart disease Skin cancer Maternal Grandfather Prostate cancer Mother Breast cancer Sister Diabetes Social History Smoking Status: Never smoker Do you use any of these nicotine containing products: None How often do you have a drink containing alcohol: never How often do you have six or more drinks on one occasion: Never AUDIT-C Alcohol total score: 0 Non-prescribed substance use: denies use Caffeine: Yes (coffee a few times a week) Exam Narrative: Exam Narrative: Const: Well-nourished, Well-developed, in no distress Eyes: PERRL, no conjunctival injection, and symmetrical lids HENT: Atraumatic external nose and ears. Moist mucous membranes. Neck: Symmetric, trachea midline, No thyromegaly. CVS: RRR, No murmurs or gallops. Peripheral pulses 2+ and equal in all extremities RESP: Unlabored respiratory effort. Clear to auscultation bilaterally. GI: Nontender/Nondistended, No rebound or guarding. MSK: Right leg swelling for well healing surgical site at the knee. Mild pain to right calf. Skin: Warm, Dry. No rashes or lesions. Neuro: Normal Muscle tone, No focal neurological deficits. Psych: Awake, Alert, & Oriented x3. Appropriate mood and affect. Const: Vital Signs, click to edit/add: Vital Signs - 24 hr 10/25/25 11:41 Temperature 97.9 F Pulse Rate [Pulse Oximeter] 62 Respiratory Rate 18 Blood Pressure [Ri ght Upper Arm] 149/82 H Pulse Oximetry 97 Oxygen Delivery Me thod Room Air Course Vital Signs Vital signs: Initial Vital Signs Temperature 97.9 F 10/25/25 11:41 Temperature Source Temporal Artery Scan 10/25/25 11:41 Pulse Rate 62 10/25/25 11:41 Respiratory Rate 18 10/25/25 11:41 Blood Pressure 149/82 H 10/25/25 11:41 Blood Pressure Mean 104 10/25/25 11:41 Blood Pressure Position Sitting 10/25/25 11:41 Pulse Oximetry 97 10/25/25 11:41 Oxygen Delivery Method Room Air 10/25/25 11:41 Vital Signs Temperature 97.9 F 10/25/25 11:41 Pulse Rate 62 10/25/25 11:41 Respiratory Rate 18 10/25/25 11:41 Blood Pressure 149/82 H 10/25/25 11:41 Pulse Oximetry 97 10/25/25 11:41 Oxygen Delivery Method Room Air 10/25/25 11:41 Temperature 97.9 F 10/25/25 11:41 Pulse Rate 62 10/25/25 11:41 Respiratory Rate 18 10/25/25 11:41 Blood Pressure 149/82 H 10/25/25 11:41 Pulse Oximetry 97 10/25/25 11:41 Oxygen Delivery Method Room Air 10/25/25 11:41 MDM - Extremity Injury (Lower) MDM Narrative Medical decision making narrative: Patient is 65-year-old male presenting to the emergency department for a DVT to his right leg. He states symptoms are rather minimal and he feels overall well. Is not having any symptoms of a pulmonary embolism. Vital signs are stable. Do not believe further imaging is warranted. Lab work is not indicated. He will be discharged with Hortensia. Discharge Plan Discharge Clinical Impression: DVT (deep venous thrombosis) Qualifiers: DVT location: lower extremity Affected thrombotic vein of extremity: other lower extremity vein Chronicity: acute Laterality: right Qualified Code(s): I82.491 - Acute embolism and thrombosis of other specified deep vein of right lower extremity Patient Disposition: Home, Self-Care Condition: Stable Instructions: Deep Vein Thrombosis (ED) Additional Instructions: Stop the baby aspirin but continue to take the blood thinner known as Eliquis/apixaban. Follow-up with your primary care provider to manage your Eliquis. Return to emergency department for new or worsening symptoms specifically return immediately if you develops chest pain, shortness of breath, lightheadedness. Prescriptions: New Eliquis DVT-PE Treat 30D Start 5 mg (74 tabs) tablets,dose pack 5 mg PO BID Qty: 74 0RF Rx Instructions: take 10 mg twice daily for for 7 days then 5 mg twice daily the her after that No Action ibuprofen 200 mg capsule 600 mg PO Q6H PRN acetaminophen [Tylenol Extra Strength] 500 mg tablet 1,000 mg PO Q6H PRN aspirin 81 mg tablet,delayed release (DR/EC) 81 mg PO BID Qty: 60 0RF Rx Instructions: Take until gone for DVT prophylaxis Follow Up/Referrals: Francine Sharma [Primary Care Provider, Family Practice] Stand Alone Forms: [employer] Info Instructions
== END 2025-10-25 12:17 | disposition home or self-care (01) ==
LOC: ED 12:07
PROVIDERS: Emergency Provider Student in an Organized Health Care Education/Training Program; PCP Physician Assistant
DX: T81.718A Complication of other artery following a procedure, not elsewhere classified, initial encounter (principal); I82.431 Acute embolism and thrombosis of right popliteal vein; I82.441 Acute embolism and thrombosis of right tibial vein; I82.451 Acute embolism and thrombosis of right peroneal vein; Z79.01 Long term (current) use of anticoagulants; I97.621 Postprocedural hematoma of a circulatory system organ or structure following other procedure; Z96.651 Presence of right artificial knee joint; M79.661 Pain in right lower leg
CPT/HCPCS: 99282; 99283